=== PATIENT | female | born 1955 | race Caucasian/White ===

== ENCOUNTER 2022-12-21 05:38 | Observation (INO) ==
--- NOTE | 2022-12-18 08:33 | Anesthesiology Consultation ---
Date of Service December 18, 2022 Assessment & Plan (1) Encounter for pre-operative examination: Chart Review Chart Review: Acceptable Risk for Surgery (pending DOS labs ) and Patient NOT seen in Pre Admission Testing -No prep labs- will do CBC with diff and PRP DOS Pt requiring admission post operatively. Plan for recheck with COVID [facility] AM DOS due to possibility that patient may have a roommate. OR aware. [facility] order placed -COVID screening: Per PAT nursing assessment on 12/10/22. Pt traveled to [place] to visit family- returned 12/13/22. Did have negative home Covid test prior to traveling to [place] (took test for travel reasons). No known COVID-19 positive contacts or current COVID-19 related symptoms. Patient vaccinated for Covid. At surgeon discretion if preop Covid testing being done. Pt seen by PCP 11/30/22= Preop jaw reconstruction. Sleep apnea- use at night. Carotid stenosis (per note- carotid u/s done 10/2017- <50% bilateral stenosis)- on ASA. Stop one week before. Lumbar disk. Hyperlipidemia- on pravastatin- refusing any change. "Okay for surgery and anesthesia." Lefort I in 2 segments 09/29/19= Done under [facility] with Grade 2 view with MAC #3. ETT#7.0. Scopolamine patch to left ear. Smooth IV induction. Sequential nasal trumpet dilation. R nare 28-34 sizes without difficulty #7.0 nasal JAMSHID softened in warm sterile water and lubricated easily passed in right nare. DL x1. Atraumatic intubation with Matthew forceps assist History Surgery Operation Date: 12/21/22 07:15 Proposed Procedures p Lower Jaw Osteotomy and Surgical Stent Placement Direct Fixation - Joey Feng DMD Height/Weight Height: 5 ft 5.5 in Weight: 74.389 kg Allergies Allergy/AdvReac Type Severity Reaction Status Date / Time No Known Allergies Allergy Verified 12/10/22 10:37 Medications Home Medications Medication Instructions Recorded Confirmed Last Taken levothyroxine 50 mcg capsule 50 mcg PO QAM 08/29/19 12/10/22 09/18/19 06:30 multivitamin (Daily Multi-Vitamin 1 tab PO QAM 08/29/19 12/10/22 Unknown tablet) acetaminophen 500 mg tablet 1,000 mg PO Q6H PRN Pain 1012/10/22 09/12/19 (Tylenol Extra Strength) aspirin 81 mg tablet,delayed 81 mg PO HS 09/01/19 12/10/22 09/05/19 release (Aspir-) cholecalciferol (vitamin D3) 25 1,000 unit PO HS 09/01/19 12/10/22 09/12/19 mcg (1,000 unit) capsule (Vitamin D3) amoxicillin 875 mg-potassium 1 tab PO Q12H #20 tabs 12/05/22 12/10/22 Unknown clavulanate 125 mg tablet chlorhexidine gluconate 0.12 % 15 ml mucous membrane BID #473 mL 12/05/22 12/10/22 Unknown mouthwash (Peridex) hydrocodone 5 mg-acetaminophen 325 1 tab PO Q4H PRN pain #14 tabs 12/05/22 12/10/22 Unknown mg tablet ondansetron HCl 8 mg tablet 8 mg PO Q8H PRN nausea and 12/05/22 12/10/22 Unknown vomiting #14 tabs hydrogen peroxide 1.5 % rinse 15 ml topical UD PRN Mouth 12/10/22 12/10/22 Unknown (Peroxyl) Irritation simvastatin 40 mg tablet 40 mg PO HS 12/10/22 12/10/22 Unknown amoxicillin 875 mg-potassium 1 tab PO Q12H #20 tabs 12/14/22 Unknown clavulanate 125 mg tablet chlorhexidine gluconate 0.12 % 15 ml mucous membrane BID #473 mL 12/14/22 Unknown mouthwash (Peridex) ondansetron HCl 8 mg tablet 8 mg PO Q8H PRN nausea and 12/14/22 Unknown vomiting #10 tabs hydrocodone 5 mg-acetaminophen 325 1 tab PO Q4H PRN pain #14 tabs 12/16/22 Unknown mg tablet Past Medical History Medical History Acid reflux hx-"issues have resolved" History of COVID-19 07/2022, home test, not hosp; congestion, headache, body aches, diarrhea, fatigue, sore throat>resolved. Hyperlipidemia Hypothyroidism Sleep apnea CPAP Past Surgical History Surgical History History of arthroscopy LEFT KNEE History of colonoscopy History of dilatation and curettage History of hysterectomy OVARIES REMAIN History of tonsillectomy Hx of bladder repair surgery "bladder tacking" Hx of breast reduction, elective Hx of laparoscopy Hx of oral surgery (09/19/19) Myron Marin in [address] Feng 09/19/19 Nausea and vomiting after administration of anesthetic agent Social History Smoking Status: Former smoker tobacco type: cigarettes Do You Dip or Chew Tobacco: No Smoking End Date: 20+ years ago Hx Alcohol Use: Yes Alcohol type: wine alcohol intake frequency: holidays/special occasions only Hx Substance Use: No substance use type: does not use Testing Electrocardiogram Date: 11/29/22 Sinus rhythm at 72bpm Normal EKG per confirming provider
[2022-12-21] MEDS ORDERED: ceFAZolin 2000MG 2,000 MG/15 ML SYR IV SCH (06:00)
[2022-12-21] MEDS ORDERED: LACTATED RINGER'S 1,000 ML IV SCH (06:00)
[2022-12-21] MEDS ORDERED: LR 15ML/HR IV SCH (06:00)
[2022-12-21 06:12] LABS: Basophils # (auto) 0.11 K/uL (0-0.2); Basophils % (auto) 1.8 %; Eosinophils # (auto) 0.15 K/uL (0-0.50); Eosinophils % (auto) 2.4 %; Hemoglobin 14.6 g/dl (12.0-16.0); Immature Granulocytes # (auto) 0.02 K/uL (0.01-0.20); Immature Granulocytes % (auto) 0.3 %; Lymphocytes # (auto) 2.39 K/uL (1.2-3.4); Lymphocytes % (auto) 38.1 %; Mean Corpuscular Hemoglobin 29.4 pg (25.0-34.0); Mean Corpuscular Volume 86.5 fL (80.0-100.0); Mean Platelet Volume 8.8 fL (9.4-12.4); Monocytes # (auto) 0.63 K/uL (0.11-0.59); Neutrophils # (auto) 2.97 K/uL (1.40-6.50); Neutrophils % (auto) 47.4 %; Platelet Count 363 K/uL (130-400); RDW Coefficient of Variation 13.1 % (11.5-14.5); RDW Standard Deviation 41.1 fL (36.4-46.3); Red Blood Count 4.97 M/uL (4.20-5.40); White Blood Count 6.27 K/ul (4.8-10.8)
[2022-12-21 06:32] LABS: BUN Creatinine Ratio 28.6 (10-20); Calcium 9.8 mg/dl (8.5-10.1); Creatinine Clr Calc Pharmacy 81.5 ml/min; Est GFR (African American) 104.6 ml/min; Est GFR (Non-African American) 90.3 ml/min; Potassium 4.3 mmol/L (3.5-5.1)
[2022-12-21 06:39] LABS: INR 0.9 (0.9-1.1); Partial Thromboplastin Ratio 1.1; Partial Thromboplastin Time 29.8 Seconds (21.0-31.0); Prothrombin Time 10.1 Seconds (9.0-12.0)
[2022-12-21] MEDS ORDERED: ONDANSETRON INJ 2 MG/ML 2 ML VIAL ONE ×2 (06:53→09:10)
[2022-12-21] MEDS ORDERED: LIDOCAINE 2% MPF LOCAL 5 ML VIAL INFIL ONE (06:53)
[2022-12-21] MEDS ORDERED: MIDAZOLAM HCL 1 MG/ML 2ML VIAL ONE (06:53)
[2022-12-21] MEDS ORDERED: fentaNYL citrate 100 MCG/2 ML VIAL ONE ×2 (06:53→07:57)
[2022-12-21] MEDS ORDERED: DEXAMETHASONE SOD INJ 4 MG/ML VIAL ONE (06:53)
[2022-12-21] MEDS ORDERED: PROPOFOL IV EMULSION 10 MG/ML 20 ML VIAL IV ONE (06:53)
[2022-12-21] MEDS ORDERED: ROCURONIUM BROMIDE 10 MG/ML 5 ML VIAL IV ONE ×4 (06:54)
[2022-12-21] MEDS ORDERED: SUGAMMADEX SODIUM 200 MG/2 ML VIAL IV ONE (07:00)
[2022-12-21] MEDS ORDERED: TRIAMCINOLONE ACET 0.1% OINT 15 GM TUBE ONE (07:10)
[2022-12-21] MEDS ORDERED: BUPIVACAINE/EPINEPHRINE 0.5% MPF 1:200,000 30 ML VIAL ONE (07:10)
[2022-12-21] MEDS ORDERED: CHLORHEXIDINE GLUCONATE 0.12% 480 ML MT ONE (07:11)
[2022-12-21] MEDS ORDERED: HYDROmorphone INJ 2 MG/ML SYR/VIAL IV PRN (07:14)
[2022-12-21] MEDS ORDERED: ePHEDrine sulfate 50 MG/ML AMP IV PRN (07:14)
[2022-12-21] MEDS ORDERED: fentaNYL citrate 100 MCG/2 ML VIAL IV PRN (07:14)
[2022-12-21] MEDS ORDERED: ATROPINE SULFATE 0.1 MG/ML 10ML SYR IV PRN (07:14)
[2022-12-21] MEDS ORDERED: DROPERIDOL 5 MG/2 ML VIAL IV PRN (07:14)
[2022-12-21] MEDS ORDERED: LIDOCAINE/EPINEPHRINE 1.7 ML CTR ONE (07:16)
[2022-12-21] MEDS ORDERED: SCOPOLAMINE 1 MG TDSY TD ONE ×2 (07:16)
[2022-12-21] MEDS ORDERED: OXYMETAZOLINE 0.05% 30 ML BTL ONE (07:21)
--- NOTE | 2022-12-21 07:24 | History & Physical Report ---
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 Can Sealer----Dr Nolasco Diagnosis-------Maxillary Retrognathism, Mandibular retrognathism with mil sleep apnea Suggested treatment-----at least a sagittal advancement vs max/yemi osteotomies for maximum effect. I reviewed the need for the OG surgery, discussed the timing of the surgery with ortho. Reviewed the risks such as pain,swelling,infection, bleeding, nerve injury which could cause permanent numbness to face, lips, chin, tongue and gums, sinus issues, congestion, stiffness and muscle pain, changes in bite and looks of teeth and face. Injury to teeth=root canals, scaring, need for further ortho, malunion, poor result home and oral care stressed, TMJ issues, cosmetic issues, nasal, lip changes.Effect on SONNY and C-PAP, One Jaw vs Two Jaw surgery. Spent a lot of time on complication --nerve to lower lip, chin and tongue, permanent numbness is possible. After much review it was decided that the sagittal advancement only would be the best option. Plan procedure for Dec 21 in OR as 23 hr observation. Also reviewed home care, diet,follow up, activity level and continuation of orthodontic care. I will review with Dr Nolasco and then finalize treatment options. I will email more information to Rosemary regarding the surgery Main Concern: "my chewing is getting worse, I continue to bite my lips and tongue, my bite is off," Can Sealer needs to correct lower arch due to it being narrow, however there is need for upper jaw to be made wider so the lower teeth can be up righted. 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, poor dental occlusion lower/upper teeth, narrow upper-skeletal arch form, At present it looks normal however because of the narrow lower jaw the relationship is far from ideal Major Discrepancies: A-P Retrognathism 6-7 mm of mandibular retrognathism Retrognathism of the maxilla by at least 5 mm Vertical Deep bite of 6 mm lower anterior teeth hitting the palatal tissues Transverse:this was correct with phase I surgery and is now ideal Based on the established guidelines from the [place] [employer] the severity of this deformity precludes adequate treatment through dental treatment alone. Medical necessity has been established by the significant deformity and the resulting functional impairment in mastication and symptoms of mild SONNY and need for C-PAP Medical Indication For Reconstructive Jaw Surgery Inability to close jaws into a normal relationship due to the severe skeletal deformity. Skeletal malocclusion due to the skeletal deformity resulting in a traumatic occlusion Chronic mastication difficulty due to the skeletal deformity. Mild sleep apnea and need for C-PAP Soft tissue trauma to tongue, lips and cheeks due to the traumatic occlusion. X ray evaluation: Cephalometric analysis---retrognathic max/yemi class II deep bite Panorex:---TMJ anatomy good, teeth in good repair. Treatment plan: Sagittal split advancement CPT 86974/ ICD10 M26.04 The above mentioned surgical procedure is not being preformed for any type of cosmetic reasons. The patient has a true jaw deformity that is preventing her from functioning in a normal manner. The proposed surgery is for functional rehabilitation of the skeletal alignment of the patient`s jaw and improve her SONNY. Joey Feng DMD [facility] [address] [place] [address], [place] [address] # [phone]. Physical Exam Physical Exam ConstitutionalWD/WN, vitals as above EyesPERRL, conjunctivae normal, anicteric sclerae MouthClass II deep bite, retrognathic upper/lower jaws Neck tracheamidline, no thyromegaly Thyroid:normal thyroid Respiratorynormal respiratory effort, lungs clear to auscultation Auscultation: lungs clear to auscultation bilaterally, mild SONNY on C-PAP Cardiovascular RRR, no murmur, no edema Rate/Rhythm: regular rate and regular rhythm Gastrointestinal (Abdomen)normal bowel sounds, soft, nontender, no hepatosplenomegaly Musculoskeletalno cyanosis or clubbing, extremities motor strength 5/5 Skinno rashes, warm and dry NeurologicPERRL, EOMI, accommodation nl, no face palsy, no dysarthria Cranial Nerves:sense of smell intact, PERRL, normal accommodation, EOM intact bilaterally, normal facial strength, tongue midline, normal gag reflex, normal hearing, able to rotate head bilaterally, able to elevate shoulders bilaterally, no nystagmus and symmetric palate elevation PsychiatricA+Ox3, euthymic affect Orientation: cooperative Lymphaticno cervical or axillary lymphadenopathy PFS Medical History(Updated 07/16/22 @ 18:55 by Joey Feng DMD) Acid reflux Hyperlipidemia Hypothyroidism Sleep apnea Surgical History(Updated 09/19/19 @ 11:06 by Regi Laguna RN) History of arthroscopy History of colonoscopy History of hysterectomy History of tonsillectomy Hx of oral surgery (09/19/19) Nausea and vomiting after administration of anesthetic agent Social History Smoking Status: Former smoker Second Hand Exposure: No; Hx Alcohol Use: Yes Alcohol type: wine Hx Substance Use: No Preferred Language: Arabic Communication Ability: Effective Visual Impairment: No Limitations Bone Cooking Operator Required: No Beliefs That Will Affect Care: None Current Living Situation: Alone Feels Safe at Home: Yes Assistive Devices: Contacts and Glasses Results Reviewed Results Reviewed Results Common Labs: RBC 4.72 M/uL (4.2-5.4) 08/29/19 WBC 4.87 K/uL (4.8-10.8) 08/29/19 Hgb 14.0 g/dL (12.0-16.0) 08/29/19 Hct 41.7 % (37-47) 08/29/19 Plt Count 367 K/uL (130-400) 08/29/19 Allergies No Known Allergies Allergy (Verified 07/14/22 15:26) Medications calcium carbonate 600 mg calcium (1,500 mg) tablet (Calcium) 600 mg PO QAM 08/29/19 [History Confirmed 07/14/22] levothyroxine 50 mcg capsule 50 mcg PO QAM 08/29/19 [History Confirmed 07/14/22] meloxicam 15 mg tablet (Mobic) 15 mg PO DAILY PRN Pain 08/29/19 [History Confirmed 07/14/22] multivitamin (Daily Multi-Vitamin tablet) 1 tab PO QAM 08/29/19 [History Confir med 07/14/22] pantoprazole 40 mg tablet,delayed release (Protonix) 40 mg PO DAILY PRN Acid Reflux 08/29/19 [History Confirmed 07/14/22] simvastatin 10 mg tablet (Zocor) 10 mg PO QPM 08/29/19 [History Confirmed 07/14/22] acetaminophen 500 mg tablet (Tylenol Extra Strength) 1,000 mg PO Q6H PRN Pain 09/01/19 [History Confirmed 07/14/22] aspirin 81 mg tablet,delayed release (Aspir-) 81 mg PO QPM 09/01/19 [History Confirmed 07/14/22] cholecalciferol (vitamin D3) 25 mcg (1,000 unit) capsule (Vitamin D3) 1,000 unit PO QPM 09/01/19 [History Confirmed 07/14/22] Coding Diagnoses Adverse reaction to anesthetic agent T41.45XA Arthritis M19.90 Headache R51 Encounter for pre-operative examination Z01.818 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 overlap M26.23 CPT Codes PREPARE FACE/ORAL PROSTHESIS - 45993 RECONST LWR JAW W/FIXATION - 39021 Allergies Allergy/AdvReac Type Severity Reaction Status Date / Time No Known Allergies Allergy Verified 12/21/22 05:52 Home Medications Medication Instructions Recorded Confirmed Type levothyroxine 50 mcg capsule 50 mcg PO QAM 08/29/19 12/21/22 History multivitamin (Daily Multi-Vitamin 1 tab PO QAM 08/29/19 12/21/22 History tablet) acetaminophen 500 mg tablet 1,000 mg PO Q6H PRN Pain 09/01/19 12/21/22 History (Tylenol Extra Strength) aspirin 81 mg tablet,delayed 81 mg PO HS 09/01/19 12/21/22 History release (Aspir-) cholecalciferol (vitamin D3) 25 1,000 unit PO HS 09/01/19 12/21/22 History mcg (1,000 unit) capsule (Vitamin D3) ondansetron HCl 8 mg tablet 8 mg PO Q8H PRN nausea and 12/05/22 12/21/22 Rx vomiting #14 tabs hydrogen peroxide 1.5 % rinse 15 ml topical UD PRN Mouth 12/10/22 12/21/22 History (Peroxyl) Irritation simvastatin 40 mg tablet 40 mg PO HS 12/10/22 12/21/22 History amoxicillin 875 mg-potassium 1 tab PO Q12H #20 tabs 12/14/22 12/21/22 Rx clavulanate 125 mg tablet chlorhexidine gluconate 0.12 % 15 ml mucous membrane BID #473 mL 12/14/22 12/21/22 Rx mouthwash (Peridex) hydrocodone 5 mg-acetaminophen 325 1 tab PO Q4H PRN pain #14 tabs 12/16/22 12/21/22 Rx mg tablet Past Med/Surg History Medical History Acid reflux hx-"issues have resolved" History of COVID-19 07/2022, home test, not hosp; congestion, headache, body aches, diarrhea, fatigue, sore throat>resolved. Hyperlipidemia Hypothyroidism Sleep apnea CPAP Surgical History History of arthroscopy LEFT KNEE History of colonoscopy History of dilatation and curettage History of hysterectomy OVARIES REMAIN History of tonsillectomy Hx of bladder repair surgery "bladder tacking" Hx of breast reduction, elective Hx of laparoscopy Hx of oral surgery (09/19/19) Myron Marin in [address] Feng 09/19/19 Nausea and vomiting after administration of anesthetic agent Social History Smoking Status: Former smoker Smoking End Date: 20+ years ago; Second Hand Exposure: Yes (many years ago at work); Do You Dip or Chew Tobacco: No; Tobacco Cessation Education Requested by Patient: No Hx Alcohol Use: Yes Alcohol type: wine Hx Substance Use: No Preferred Language: Arabic Communication Ability: Effective Visual Impairment: No Limitations Bone Cooking Operator Required: No Beliefs That Will Affect Care: None Current Living Situation: Alone Other Information That Helps Us Care for You: No Feels Safe at Home: Yes Safety Concerns: Feels Safe At This Time Assistive Devices: Contacts, CPAP and Glasses Results & Data Results & Data ([facility]) Vital Signs (Past 12 Hours) Vital Signs Temp Pulse Resp BP Pulse Ox O2 Del Method 12/21/22 06:03 37.1 C 84 18 148/95 H 95 Room Air PG Care Time/CCT Total # of Minutes Spent Total Time Spent with Patient: Total time spent is greater than 50% in coordination of care (as documented) at patient's floor/unit and/or counseling patient: Coding Level of Care Code None
--- NOTE | 2022-12-21 07:25 | History & Physical Bridge Note ---
Date of Service December 21, 2022 History & Physical Bridge Note I have examined the patient, reviewed the History & Physical and in the interval since the performance of the History & Physical I have noted the following changes of clinical significance: no changes noted OK for planned surgery Se Medical clearances all OK for the planned surgery Labs all OK for the surgery Consent signed Plan sagittal advancement lower jaw with fixation 23 hr observation status
[2022-12-21] MEDS ORDERED: BUPIVACAINE/EPINEPHRINE 0.5% 1:200,000 1.8 ML CARP ONE (07:38)
[2022-12-21] MEDS ORDERED: KETAMINE 50 MG/5 ML SYRINGE ONE (07:56)
[2022-12-21] MEDS ORDERED: ACETAMINOPHEN 1000 MG/100 ML IV IV ONE (09:51)
[2022-12-21] MEDS ORDERED: ONDANSETRON INJ 2 MG/ML 2 ML VIAL IV PRN (10:19)
[2022-12-21] MEDS ORDERED: ACETAMINOPHEN SUSP 325 MG/10.15 ML UDC PO PRN (10:19)
[2022-12-21] MEDS ORDERED: ACETAMINOPHEN/HYDROcodone ELIX 15 ML/CUP PO PRN ×2 (10:19)
[2022-12-21] MEDS ORDERED: LORazepam 2 MG/1 ML VIAL IV PRN (10:19)
[2022-12-21] MEDS ORDERED: MoRPHine SULFATE 4 MG/ML 1 ML CARP\\VIAL IV PRN (10:19)
[2022-12-21] MEDS ORDERED: OXYMETAZOLINE 0.05% 30 ML BTL PRN (10:19)
--- NOTE | 2022-12-21 10:32 | Post Operative Brief Note ---
PG Immediate Post Op with CF Date of Surgery December 21, 2022 Pre & Post Diagnosis Operation Date: 12/21/22 07:15 Pre-Op Diagnosis: Mandibular Retrognathism Post-Op Diagnosis: Mandibular Retrognathism I identified the patient and participated in the time-out.: Yes Procedure Operation Date: 12/21/22 07:15 Actual Procedures p Lower Jaw Osteotomy and Surgical Stent Placement Direct Fixation(Not Applicable) - Joey Feng DMD Surgeon Joey Feng DMD Internet Webmaster none Estimated Blood Loss 25 Findings Consistent with Post-Op Diagnosis retrognathic lower jaw Anesthesia Type General Complications none
--- NOTE | 2022-12-21 11:24 | XRay Report ---
MANDIBLE 2 VIEWS CLINICAL HISTORY: Postoperative examination. FINDINGS: AP and crosstable lateral views of the mandible are correlated with facial bone CT dated . Orthodontic braces are in place. There is evidence of bilateral mandibular osteotomy. 4 cor tical screws transfix the osteotomy site on the right and 3 cortical screws transfix the osteotomy si te on the left. The hardware appears intact. No findings are identified to suggest acute mandibular f racture. The temporomandibular joints appear maintained. The visualized paranasal sinuses appearance clear. Soft tissue edema overlying the mandible bilaterally and subcutaneous gas represent expected p ostoperative change. IMPRESSION: Expected postoperative findings status post bilateral mandibular osteotomy. The hardware appears intact. Electronically signed by: Fredy Tellez M.D. 12/21/2022 11:23 AM
[2022-12-21] MEDS ORDERED: PHENYLEPHRINE 100MCG/ML 5ML SYR ONE (12:00)
--- NOTE | 2022-12-21 12:25 | Anesthesiology Progress Note ---
Date of Service December 21, 2022 Anesthesia Post Procedure Vital Signs Vital Signs: Temp Pulse Pulse Resp BP Pulse Ox O2 Del Method 12/21/22 12:13 Room Air 12/21/22 12:00 36.3 C L 83 18 154/81 H 95 Room Air 12/21/22 11:35 77 17 148/76 H 96 Room Air 12/21/22 11:25 67 12 152/89 H 95 Room Air 12/21/22 11:15 78 18 151/79 H 96 Room Air 12/21/22 11:00 36.2 C L 80 16 149/78 H 97 Room Air 12/21/22 10:50 78 16 155/80 H 100 Oxymask 12/21/22 10:40 80 16 146/90 H 100 Oxymask 12/21/22 10:30 71 12 137/82 99 Oxymask 12/21/22 10:21 36 C L 95 H 15 154/81 H 100 Oxymask 12/21/22 06:03 37.1 C 84 18 148/95 H 95 Room Air O2 Flow Rate 12/21/22 12:13 12/21/22 12:00 12/21/22 11:35 12/21/22 11:25 12/21/22 11:15 12/21/22 11:00 12/21/22 10:50 3 12/21/22 10:40 5 12/21/22 10:30 8 12/21/22 10:21 8 12/21/22 06:03 Transfer of Care Handoff Completed per policy Notes Mental Status: alert / awake / arousable and participated in evaluation Patient Amnestic to Procedure: Yes Nausea / Vomiting: adequately controlled Pain: adequately controlled Airway Patency, RR, SpO2: stable & adequate BP & HR: stable & adequate Hydration State: stable & adequate Anesthetic Complications: no major complications apparent and Pt Satisfied with anesthetic care
[2022-12-21] MEDS: dexAMETHasone 6 MG in SYRINGE 0 ML IV SCH ×3 (13:13→23:26)
[2022-12-21] MEDS: KETOROLAC TROMETHAMINE 15 MG/ML VIAL IV SCH ×3 (13:13→23:26)
[2022-12-21] MEDS: CHECK SCOPOLAMINE PATCH PLACEMENT SCH (15:23)
[2022-12-21] MEDS: D5W AND 1/2NSS + 20MEQ KCL 20 MEQ/1,000 ML BAG IV SCH (15:23)
[2022-12-21] MEDS: ceFAZolin 1000MG 1,000 MG/7.5 ML SYR IV SCH ×2 (15:23→23:25)
[2022-12-21] MEDS: CHLORHEXIDINE GLUCONATE 0.12% 480 ML MT SCH (19:58)
[2022-12-21] MEDS ORDERED: TRIAMCINOLONE ACET 0.1% OINT 15 GM TUBE EXT SCH (21:00)
[2022-12-22] MEDS: CHECK SCOPOLAMINE PATCH PLACEMENT SCH ×2 (00:04→08:35)
[2022-12-22] MEDS: D5W AND 1/2NSS + 20MEQ KCL 20 MEQ/1,000 ML BAG IV SCH (01:12)
[2022-12-22] MEDS: KETOROLAC TROMETHAMINE 15 MG/ML VIAL IV SCH (06:06)
[2022-12-22] MEDS: dexAMETHasone 6 MG in SYRINGE 0 ML IV SCH ×2 (06:06→11:09)
[2022-12-22] MEDS: ceFAZolin 1000MG 1,000 MG/7.5 ML SYR IV SCH (06:06)
[2022-12-22] MEDS: CHLORHEXIDINE GLUCONATE 0.12% 480 ML MT SCH (08:35)
--- NOTE | 2022-12-22 09:33 | Oral/Maxillofacial Progress Nt ---
Date of Service December 22, 2022 Assessment & Plan Admission and Anticipated Discharge Date Admission Date: December 21, 2022 Subjective Orthognathic surgery post op note at 24 hours Excellent result, ROM improving Sutures in place Tissue tone, gingival tissue--excellent Occlusion very stable with a reproducible bite. No TMJ issues-pain, Reviewed use of functional elastics Paraesthesia as expected - nerves were intact so this should be temporary No nasal congestion or bleeding, septum well positioned. No sinus issues Facial alignment excellent Reviewed post op care--diet, oral care, use of elastics, activities. Next appointment set up for: Overall excellent result from recent OG surgery RTC for continued follow up OG instruction given and reviewed Results & Data ([facility]) Vital Signs (Past 12 Hours) Vital Signs Temp Pulse Pulse Resp BP Pulse Ox O2 Del Method 12/22/22 07:47 36.8 C 72 16 115/68 91 Room Air 12/22/22 03:54 37.4 C 79 18 115/63 92 Nasal Cannula 12/21/22 23:42 37.6 C H 90 20 107/83 93 Nasal Cannula O2 Flow Rate 12/22/22 07:47 12/22/22 03:54 2 12/21/22 23:42 2 PG Care Time/CCT Total # of Minutes Spent Total Time Spent with Patient: Total time spent is greater than 50% in coordination of care (as documented) at patient's floor/unit and/or counseling patient: Coding Level of Care Code None
--- NOTE | 2022-12-22 09:36 | Discharge Summary ---
Date of Service December 22, 2022 Orthognathic surgery Discharge note at 24 hours OK for discharge to home Instruction reviewed Has Rx at home VS. stable No N/V, fluid intake excellent No Complaints OK for D/C today Excellent result, ROM improving Sutures in place Tissue tone, gingival tissue--excellent Occlusion very stable with a reproducible bite. No TMJ issues-pain, Reviewed use of functional elastics Paraesthesia as expected - nerves were intact so this should be temporary No nasal congestion or bleeding, septum well positioned. No sinus issues Facial alignment excellent Reviewed post op care--diet, oral care, use of elastics, activities. 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 [employer] Mer[employer]----Dr Nolasco Diagnosis-------Maxillary Retrognathism, Mandibular retrognathism with mil sleep apnea Suggested treatment-----at least a sagittal advancement vs max/yemi osteotomies for maximum effect. I reviewed the need for the OG surgery, discussed the timing of the surgery with ortho. Reviewed the risks such as pain,swelling,infection, bleeding, nerve injury which could cause permanent numbness to face, lips, chin, tongue and gums, sinus issues, congestion, stiffness and muscle pain, changes in bite and looks of teeth and face. Injury to teeth=root canals, scaring, need for further ortho, malunion, poor result home and oral care stressed, TMJ issues, cosmetic issues, nasal, lip changes.Effect on SONNY and C-PAP, One Jaw vs Two Jaw surgery. Spent a lot of time on complication --nerve to lower lip, chin and tongue, permanent numbness is possible. After much review it was decided that the sagittal advancement only would be the best option. Plan procedure for Dec 21 in OR as 23 hr observation. Also reviewed home care, diet,follow up, activity level and continuation of orthodontic care. I will review with Dr Nolasco and then finalize treatment options. I will email more information to Rosemary regarding the surgery Main Concern: "my chewing is getting worse, I continue to bite my lips and tongue, my bite is off," [employer] needs to correct lower arch due to it being narrow, however there is need for upper jaw to be made wider so the lower teeth can be up righted. 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, poor dental occlusion lower/upper teeth, narrow upper-skeletal arch form, At present it looks normal however because of the narrow lower jaw the relationship is far from ideal Major Discrepancies: A-P Retrognathism 6-7 mm of mandibular retrognathism Retrognathism of the maxilla by at least 5 mm Vertical Deep bite of 6 mm lower anterior teeth hitting the palatal tissues Transverse:this was correct with phase I surgery and is now ideal Based on the established guidelines from the [place] [employer]ill[employer] the severity of this deformity precludes adequate treatment through dental treatment alone. Medical necessity has been established by the significant deformity and the resulting functional impairment in mastication and symptoms of mild SONNY and need for C-PAP Medical Indication For Reconstructive Jaw Surgery Inability to close jaws into a normal relationship due to the severe skeletal deformity. Skeletal malocclusion due to the skeletal deformity resulting in a traumatic occlusion Chronic mastication difficulty due to the skeletal deformity. Mild sleep apnea and need for C-PAP Soft tissue trauma to tongue, lips and cheeks due to the traumatic occlusion. X ray evaluation: Cephalometric analysis---retrognathic max/yemi class II deep bite Panorex:---TMJ anatomy good, teeth in good repair. Treatment plan: Sagittal split advancement CPT 89453/ ICD10 M26.04 The above mentioned surgical procedure is not being preformed for any type of cosmetic reasons. The patient has a true jaw deformity that is preventing her from functioning in a normal manner. The proposed surgery is for functional rehabilitation of the skeletal alignment of the patient`s jaw and improve her SONNY. Joey Feng [facility] [address] [place] [address], [place] [address] # [phone]. Physical Exam Physical Exam ConstitutionalWD/WN, vitals as above EyesPERRL, conjunctivae normal, anicteric sclerae MouthClass II deep bite, retrognathic upper/lower jaws Neck tracheamidline, no thyromegaly Thyroid:normal thyroid Respiratorynormal respiratory effort, lungs clear to auscultation Auscultation: lungs clear to auscultation bilaterally, mild SONNY on C-PAP Cardiovascular RRR, no murmur, no edema Rate/Rhythm: regular rate and regular rhythm Gastrointestinal (Abdomen)normal bowel sounds, soft, nontender, no hepatosplenomegaly Musculoskeletalno cyanosis or clubbing, extremities motor strength 5/5 Skinno rashes, warm and dry NeurologicPERRL, EOMI, accommodation nl, no face palsy, no dysarthria Cranial Nerves:sense of smell intact, PERRL, normal accommodation, EOM intact bilaterally, normal facial strength, tongue midline, normal gag reflex, normal hearing, able to rotate head bilaterally, able to elevate shoulders bilaterally, no nystagmus and symmetric palate elevation PsychiatricA+Ox3, euthymic affect Orientation: cooperative Lymphaticno cervical or axillary lymphadenopathy [facility] Medical History(Updated 07/16/22 @ 18:55 by Joey Feng DMD) Acid reflux Hyperlipidemia Hypothyroidism Sleep apnea Surgical History(Updated 09/19/19 @ 11:06 by Regi Laguna RN) History of arthroscopy History of colonoscopy History of hysterectomy History of tonsillectomy Hx of oral surgery (09/19/19) Nausea and vomiting after administration of anesthetic agent Social History Smoking Status: Former smoker Second Hand Exposure: No; Hx Alcohol Use: Yes Alcohol type: wine Hx Substance Use: No Preferred Language: Norwegian Communication Ability: Effective Visual Impairment: No Limitations [employer] Required: No Beliefs That Will Affect Care: None Current Living Situation: Alone Feels Safe at Home: Yes Assistive Devices: Contacts and Glasses Results Reviewed Results Reviewed Results Common Labs: RBC 4.72 M/uL (4.2-5.4) 08/29/19 WBC 4.87 K/uL (4.8-10.8) 08/29/19 Hgb 14.0 g/dL (12.0-16.0) 08/29/19 Hct 41.7 % (37-47) 08/29/19 Plt Count 367 K/uL (130-400) 08/29/19 Allergies No Known Allergies Allergy (Verified 07/14/22 15:26) Medications calcium carbonate 600 mg calcium (1,500 mg) tablet (Calcium) 600 mg PO QAM 10/15/19 [History Confirmed 07/14/22] levothyroxine 50 mcg capsule 50 mcg PO QAM 08/29/19 [History Confirmed 07/14/22] meloxicam 15 mg tablet (Mobic) 15 mg PO DAILY PRN Pain 08/29/19 [History Confirmed 07/14/22] multivitamin (Daily Multi-Vitamin tablet) 1 tab PO QAM 08/29/19 [History Confirmed 07/14/22] pantoprazole 40 mg tablet,delayed release (Protonix) 40 mg PO DAILY PRN Acid Reflux 08/29/19 [History Confirmed 07/14/22] simvastatin 10 mg tablet (Zocor) 10 mg PO QPM 08/29/19 [History Confirmed 07/14/22] acetaminophen 500 mg tablet (Tylenol Extra Strength) 1,000 mg PO Q6H PRN Pain 09/01/19 [History Confirmed 07/14/22] aspirin 81 mg tablet,delayed release (Aspir-) 81 mg PO QPM 09/01/19 [History Confirmed 07/14/22] cholecalciferol (vitamin D3) 25 mcg (1,000 unit) capsule (Vitamin D3) 1,000 unit PO QPM 09/01/19 [History Confirmed 07/14/22] Coding Diagnoses Adverse reaction to anesthetic agent T41.45XA Arthritis M19.90 Headache R51 Encounter for pre-operative examination Z01.818 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
--- NOTE | 2022-12-23 17:17 | Operative Report ---
PG Post Operative Report Pre & Post Diagnosis Operation Date: 12/21/22 07:15 Pre-Op Diagnosis: Maxillary Retrognathism Post-Op Diagnosis: Maxillary Retrognathism I identified the patient and participated in the time-out.: Yes Procedure Operation Date: 12/21/22 07:15 Actual Procedures p Lower Jaw Osteotomy and Surgical Stent Placement Direct Fixation(Not Appl icable) - Joey Feng DMD Surgeon Joey Feng DMD [employer] Tender none Estimated Blood Loss 25 Findings Consistent with Post-Op Diagnosis Specimens none Drains none Anesthesia Type General Complications none Indications retrognathic lower jaw Description of Procedure Operation Date: Pre-Op Diagnosis: Mandibular Retrognathia, Deformity Post-Op Diagnosis: Mandibular Retrognathia Deformity I identified the patient and participated in the time-out.: Yes Actual Procedures p Sagittal Split Osteotomy of Lower Jaw with Fixation placement of surgical splint (Not Applicable) - Joey Feng DMD Surgeon Joey Feng DMD [employer] Tender none Estimated Blood Loss Findings Consistent with Post-Op Diagnosis Specimens none Drains none Anesthesia Type General Regional Complications none Indications mandibular retrognathism DESCRIPTION OF PROCEDURE: Bilateral sagittal split CPT 03117 Placement of surgical splint CPT 88353 PG Post Operative Report Pre & Post Diagnosis Pre-Op Diagnosis: Class II Malocclusion Post-Op Diagnosis: Class II Malocclusion I identified the patient and participated in the time-out.: Yes Procedure Actual Procedures p Sagittal split of lower jaw, Placement of surgical splint(Not Applicable) - Joey Feng DMD DESCRIPTION OF PROCEDURE: Bilateral sagittal split CPT 15788 Placement of surgical splint CPT 05315 After this patient is cleared to undergo general anesthesia, she was brought down to the operating room and placed under. General anesthesia via nasotracheal intubation. After adequate anesthesia was obtained, the patient was prepped and draped in the usual manner for a mandibularsagittal osteotomy. The patient had a class II with deviation to the right. The facial area was draped with the appropriate sterile technique, local anesthesia was infiltrated into themandibular tissues to allow for hemostasis with local anesthetic effect. Timeout After an adequate period of time to allow for the hemostasis and local anesthetic effect, an oropharyngeal throat pack was placed, the oral cavity was irrigated and suctioned dried with Peridex mouth rinse. At this time, the appropriate time outs to verify the patient, position, type of surgery,antibiotics and equipment once everyone agreed we then started the operative procedure. Right side sagittal split Using an electrocautery instrument, an incision approximately 1.5 cm in length was made in the external oblique region on the right side. The tissue was reflected to expose the bone. Once the bone was reflected; I had good visualization of the inferior border of the mandible, the angle of the mandible, the lingual aspect of the mandible and the nerve as it entered the mandibular foramen. Now with a fiberoptic retractor I was able to hold the lingual tissue out of the way and had good visualization of the lingual cortical plate and the nerve entrance into the bone. With the large round rosa, I was able to remove the spinous processes of the external oblique ridge. Now using a reciprocating saw, an osteotomy was made parallel to the occlusion plane of the mandibular molar teeth approximately 1-2 mm above the nerve. I then used the spear point Cabral rosa very carefully to make a trough in the external oblique ridge from the previously made osteotomy to an area between the 1st and 2nd molars. I now continued the osteotomy parallel to the long axis of the lower molarsinferiorly to the inferior border of the mandible, taking great care to avoid any trauma to the neurovascular bundle and to ensure that I cut through the cortical plate into the marrow vascular channel. It was noted that the bone was thick and dense with a good marrow space. Splitting right side With the use of a bone automatic lehr operator and a small osteotome, I was able to complete the sagittal split of the right mandibular ramus. Great care was taken to avoid any trauma to the neurovascular bundle. Because of the thickness of the bone, the nerve was left in the segment that will be repositioned. Due to the bony anatomy of the osteotomy, I did a lot of bone reduction to allow for the mandible to be passively positioned without any pressure on the nerve or pressure that could cause distortion of the mandibular condyle. I irrigated the areas with normal saline, made sure that the neurovascular bundles were intact. Hemostasis was in excellent control. It was noted that there were few small bony interferences that trimmed with the use of rongeurs and rotary instrument. Once this was accomplished I packed the side with a gauze sponge to prevent any pressure on the nerve and to control bleeding. At this time, I turned my attention to the left side. Left side sagittal split Using an electrocautery instrument, an incision approximately 1.5 cm in length w as made in the external oblique region on the right side. The tissue was reflected to expose the bone. Once the bone was reflected; I had good visualization of the inferior border of the mandible, the angle of the mandible, the lingual aspect of the mandible and the nerve as it entered the mandibular foramen. Now with a fiberoptic retractor I was able to hold the lingual tissue out of the way and had good visualization of the lingual cortical plate and the nerve entrance into the bone. With the large round rosa, I was able to remove the spinous processes of the external oblique ridge. Now using a reciprocating saw, an osteotomy was made parallel to the occlusion plane of the mandibular molar teeth approximately 1-2 mm above the nerve. I then used the spear point Cabral rosa very carefully to make a trough in the external oblique ridge from the previously made osteotomy to an area between the 1st and 2nd molars. I now continued the osteotomy parallel to the long axis of the lower molarsinferiorly to the inferior border of the mandible, taking great care to avoid any trauma to the neurovascular bundle and to ensure that I cut through the cortical plate into the marrow vascular channel. It was noted that the bone was thick and dense with an ideal marrow space. Splitting left side With the use of a bone automatic lehr operator and a small osteotome, I was able to complete the sagittal split of the left mandibular ramus. Great care was taken to avoid any trauma to the neurovascular bundle. Because of the thickness of the bone, the nerve was left in the segment that will be repositioned. Due to the bony anatomy of the osteotomy, I did a lot of bone reduction to allow for the mandible to be passively positioned without any pressure on the nerve or pressure that could cause distortion of the mandibular condyle. I was certain that the two fragments would lay passively over each other and the osteotomy site was then trimmed to ensure that there were no bony interferences I irrigated the areas with normal saline, made sure that the neurovascular bundles were intact. Hemostasis was in excellent control. It was noted that there were few small bony interferences that trimmed with the use of rongeurs and rotary instrument. Once this was accomplished I packed the side with a gauze sponge to prevent any pressure on the nerve and to control bleeding. Establishing the occlusion once the right and left sides were completely cut and the soft tissue was reflected to allow repositioning the final occlusal splint was applied to the mandible and the mandibular complex with the splint was easily rotated and held into position and stabilized with 25 gauge stainless steel wires to the maxilla. Once both sides were split and the segments were layingpassively over each other, the osteotomy site was then trimmed to ensure that there were no bony interferences. I irrigated the areas with normal saline, made sure that the neurovascular bundles were intact and that hemostasis was in excellent control. Once the segments were positioned the 7 mm advancement with shift to the left and rotation was noted. This was a very complex 3-D movement.The soft tissue was reflected to allow a passive advancement. Applying Direct osseous fixation It was noted that there were few small bony interferences which were easily trimmed with the use of rongeurs and rotary instrument. I was now ready to place the fixation screws. Right side--I used a small clasp, placed between the two fragments and noted that the fragments were seating extremely passively over each other. I did some further trimming to ensure that there was no pressure on the nerve and to ensure that the condyle was well seated. Being satisfied with this, I passed an 11 blade through the cheek, a trocar was placed and then 4 interosseous holes were placed above the neurovascular bundle, but below the external oblique ridge for direct osseous fixation of the right mandibular fragment. Left side----I used a small clasp, placed between the two fragments and noted that the fragments were seating extremely passively over each other. I did some further trimming to ensure that there was no pressure on the nerve and to ensure that the condyle waswell seated. Being satisfied with this, I passed an 11 bladethrough the cheek, a trocar was placed and then 3 interosseous holes were placed above the neurovascular bundle, but below the external oblique ridge for direct osseous fixation of the left mandibular fragment. I now checked both osteotomy sites and found them to be extremely stable. At this time, the temporary intermaxillary fixation was removed. The occlusion was extremely stable and reproducible. The patient had a good range of motion without clicks or pops or deviations. The sites were irrigated and checked for bleeding. I inspected the lingual aspects to make sure that the screws did not perforate the lingual cortical plate--were necessary the screws were adjusted to insure a flush fit. Closure I turned my attention first to the right side; with the use of a 4-0 Vicryl suture, I was able to suture the osteotomy site. Once this was accomplished, we turned our attention to the left side and a similar suturing technique was carried out. Using a 6-0 nylon suture 2 skin sutures in each cheek site was used to close the skin. 2 dental elastics were applied in the cupid areas to allow for functional elastic stability. I now placed a gauze pressure dressing on the lateral sides and held them with an elastic pressure band around the face Recovery The patient was allowed to recover in the usual manner. A check to insure all instrument and sponge count was correct was accomplished and verified the oral cavity was suctioned and Ipassed an oral gastric tube. When fully recovered, extubation occurred. All vital signs were extremely stable. Now the anesthesia department transferred the patient to the hospital litter to be taken to the recovery room. I am very pleased with the osteotomy sites, the positioning of the nerve, and the functional improvement that was gained by the osteotomy. ESTIMATED TIME OF OPERATION: Approximately 2.3 hours When I completedthe case I inspected the sites to insure all bleeding was controlled and the fixation was stable. I removed the throat pack and suctioned the throat and placed an OG tube. Bilateral gauze pressure dressings were placed. All instrument and sponge count was correct. The patient was allowed to awake from the anesthesia. Once full awake the anesthesia tube was removed and the patient was taken to the recovery room with all vital sign stable. The patient tolerated the surgery verywell. If patient meet criteria he will be discharged tonight and I will see Rosemary tomorrow AM before she heads back home with her daughter. I will follow the patient in my office, Rx and instructions will be given upon discharge. I attest to the content of the Intraoperative Record and any orders documented therein. Any exceptions are noted below.
== END 2022-12-22 12:05 | disposition home or self-care (01) ==
LOC: ASU 05:38 → 3W 05:38